=== PATIENT | male | born 1950 | race Caucasian/White ===

== ENCOUNTER 2018-08-06 19:09 | Outpatient (REF) | payer MEDICARE, SELFPAY ==
[2018-08-06 20:22] LABS: Anion Gap 8.7 mmol/L (3-11); BUN 23 mg/dL (7-18); CO2 28.3 mmol/L (21.0-32.0); CREATININE 1.41 mg/dL (0.70-1.30); Calcium 8.7 mg/dL (8.5-10.1); Chloride 102 mmol/L (98-107); Cholesterol 220 mg/dL (50-200); Estimated GFR 50.14 (mL/min/1.73m2); Glucose 104 mg/dL (70-100); HDL Cholesterol 36 mg/dL (40-60); LDL CHOLESTEROL 148 mg/dL (<100); Potassium 4.7 mmol/L (3.5-5.1); Sodium 139 mmol/L (136-145); Triglyceride 182 mg/dL (30-150)
== END 2018-08-06 19:29 ==
LOC: NCHCN 19:09
PROVIDERS: Visit Provider Physician Assistant Medical
DX: Z13.6 Encounter for screening for cardiovascular disorders (principal); R69 Illness, unspecified
CPT/HCPCS: 80048; 80061; 83721

== ENCOUNTER 2018-09-01 09:34 | Outpatient (REF) | payer MEDICARE, SELFPAY ==
[2018-09-01 19:57] LABS: Anion Gap 8.5 mmol/L (3-11); BUN 28 mg/dL (7-18); CO2 27.5 mmol/L (21.0-32.0); CREATININE 1.33 mg/dL (0.70-1.30); Calcium 9.3 mg/dL (8.5-10.1); Chloride 102 mmol/L (98-107); Estimated GFR 53.63 (mL/min/1.73m2); Glucose 102 mg/dL (70-100); Potassium 4.6 mmol/L (3.5-5.1); Sodium 138 mmol/L (136-145)
== END 2018-09-01 09:54 ==
LOC: NCHCN 09:34
PROVIDERS: PCP Physician Assistant Medical; Visit Provider Physician Assistant Medical
DX: N18.3 Chronic kidney disease, stage 3 (moderate) (principal)
CPT/HCPCS: 80048

== ENCOUNTER 2021-02-05 18:14 | Outpatient (REF) | payer MEDICARE, SELFPAY ==
[2021-02-05 18:46] LABS: Iron 66 ug/dL (65-175); Total Iron Binding Capacity 306 ug/dL (250-450); Transferrin Sat 22 % (20-55)
[2021-02-05 19:08] LABS: ALT 37 U/L (16-63); AST 24 U/L (15-37); Albumin 3.9 g/dL (3.4-5.0); Alkaline Phosphatase 95 U/L (46-116); Anion Gap 8.6 mmol/L (3-11); BUN 22 mg/dL (7-18); Bilirubin, Total 0.4 mg/dL (0.2-1.0); CO2 26.4 mmol/L (21.0-32.0); CREATININE 1.4 mg/dL (0.70-1.30); Calcium 8.9 mg/dL (8.5-10.1); Chloride 104 mmol/L (98-107); Estimated GFR 50.25 (mL/min/1.73m2); Ferritin 216 ng/mL (26-388); Glucose 91 mg/dL (74-106); Potassium 4.3 mmol/L (3.5-5.1); Sodium 139 mmol/L (136-145); TSH (W/Ref FT4) 1.66 uIU/mL (0.36-3.74); Vitamin B12 330 pg/mL (193-986)
== END 2021-02-05 18:15 | disposition home or self-care (01) ==
LOC: NCHCN 18:14
PROVIDERS: PCP Physician Assistant Medical; Visit Provider Physician Assistant
DX: R25.2 Cramp and spasm (principal); N18.9 Chronic kidney disease, unspecified; K21.9 Gastro-esophageal reflux disease without esophagitis; I87.2 Venous insufficiency (chronic) (peripheral)
CPT/HCPCS: 80053; 82607; 82728; 83540; 83550; 83735; 84443

== ENCOUNTER 2021-04-22 18:24 | Outpatient (REF) | payer MEDICARE, SELFPAY ==
[2021-04-22 18:55] LABS: ESR 23 mm/hr (0-20)
[2021-04-22 19:33] LABS: Creatine Kinase 154 U/L (39-308)
[2021-04-24 16:11] LABS: ANA Interpretation Positive (Negative); ANA Titer Pattern 1:80 Speckled
== END 2021-04-22 18:25 | disposition home or self-care (01) ==
LOC: NCHCN 18:24
PROVIDERS: PCP Physician Assistant Medical; Visit Provider Physician Assistant
DX: N18.30 Chronic kidney disease, stage 3 unspecified (principal); M79.10 Myalgia, unspecified site
CPT/HCPCS: 82550; 85652; 86038

== ENCOUNTER 2021-05-26 13:48 | Outpatient (CLI) | payer MEDICARE, SELFPAY ==
[2021-06-07 16:51] LABS: ALT 97 U/L (16-63); AST 65 U/L (15-37); Albumin 3.1 g/dL (3.4-5.0); Alkaline Phosphatase 212 U/L (46-116); Anion Gap 7.8 mmol/L (3-11); BUN 19 mg/dL (7-18); Bilirubin, Total 0.3 mg/dL (0.2-1.0); CO2 26.2 mmol/L (21.0-32.0); CREATININE 1.3 mg/dL (0.70-1.30); Calcium 8.5 mg/dL (8.5-10.1); Chloride 104 mmol/L (98-107); Estimated GFR 54.57 (mL/min/1.73m2); Glucose 103 mg/dL (74-106); Potassium 3.8 mmol/L (3.5-5.1); Sodium 138 mmol/L (136-145)
[2021-06-07 16:58] LABS: Abs Immature Grans 0.03 10^3/uL (0.0-0.06); Absolute Basophil Count 0.04 10^3/uL (0.0-0.2); Absolute Eosinophil Count 0.16 10^3/uL (0.0-0.7); Absolute Lymphocyte Count 0.62 10^3/uL (1.2-3.4); Absolute Monocyte Count 0.98 10^3/uL (0.1-0.8); Basophils % 0.5; Eosinophils % 1.8; HCT 32.7 % (40.0-50.0); HGB 10.2 g/dL (13.5-17.5); Immature Grans % 0.3; Lymphocytes % 7.1; MCH 28.1 pg (27.0-33.0); MCHC 31.2 % (32.0-36.0); MCV 90.1 fL (80-95); MPV 9.6 fL (8.0-11.0); Monocytes % 11.2; Neutrophils % 79.1; Nucleated RBC 0 %; Platelet Count 313 10^3/uL (130-400); RBC 3.63 10^6/uL (4.36-5.78); RDW 13.2 % (11.8-14.1); RDW-SD 43.4 fL; WBC 8.73 10^3/uL (4.4-10.8)
== END 2021-05-26 13:49 | disposition home or self-care (01) ==
LOC: LBO 06-10 13:54
PROVIDERS: PCP Physician Assistant Medical; Visit Provider Internal Medicine Hematology & Oncology
DX: C7A.8 Other malignant neuroendocrine tumors (principal)
CPT/HCPCS: 36415; 80053; 85025

== ENCOUNTER 2021-06-28 03:39 | Outpatient (CLI) | payer MEDICARE, SELFPAY ==
[2021-06-28 13:09] LABS: Abs Immature Grans 0.02 10^3/uL (0.0-0.06); HCT 30.8 % (40.0-50.0); HGB 9.7 g/dL (13.5-17.5); MCH 27.6 pg (27.0-33.0); MCHC 31.5 % (32.0-36.0); MCV 87.5 fL (80-95); MPV 9.5 fL (8.0-11.0); Nucleated RBC 0 %; RBC 3.52 10^6/uL (4.36-5.78); RDW 13.6 % (11.8-14.1); RDW-SD 42.9 fL
[2021-06-28 13:19] LABS: ALT 35 U/L (16-63); AST 19 U/L (15-37); Alkaline Phosphatase 148 U/L (46-116); Anion Gap 7.4 mmol/L (3-11); BUN 14 mg/dL (7-18); Bilirubin, Total 0.2 mg/dL (0.2-1.0); CO2 27.6 mmol/L (21.0-32.0); CREATININE 1.2 mg/dL (0.70-1.30); Calcium 8.6 mg/dL (8.5-10.1); Chloride 104 mmol/L (98-107); Estimated GFR 59.86 (mL/min/1.73m2); Glucose 122 mg/dL (74-106); Sodium 139 mmol/L (136-145)
[2021-06-28 13:36] LABS: Atypical Lymphocytes % 2; Bands % 1
[2021-06-28 13:37] LABS: Absolute Basophil Count 0.04 10^3/uL (0.0-0.2); Absolute Monocyte Count 0.44 10^3/uL (0.1-0.8); Diff Comment Manual Differential; Poikilocytes 1+; Polychromasia Present
[2021-06-28 13:38] LABS: Platelet Count 249 10^3/uL (130-400)
[2021-06-28 13:43] LABS: WBC 1.36 10^3/uL (4.4-10.8)
[2021-06-28 13:44] LABS: Absolute Neutrophil Count 0.29 10^3/uL (1.2-6.7)
== END 2021-06-28 03:40 | disposition home or self-care (01) ==
LOC: LBO 03:39
PROVIDERS: PCP Physician Assistant Medical; Visit Provider Internal Medicine Hematology & Oncology
DX: C7A.8 Other malignant neuroendocrine tumors (principal)
CPT/HCPCS: 36415; 80053; 85025

== ENCOUNTER 2021-07-02 04:49 | Outpatient (CLI) | payer MEDICARE, SELFPAY ==
[2021-07-02 07:50] LABS: ALT 28 U/L (16-63); AST 22 U/L (15-37); Albumin 3.1 g/dL (3.4-5.0); Alkaline Phosphatase 155 U/L (46-116); Anion Gap 7.7 mmol/L (3-11); BUN 16 mg/dL (7-18); Bilirubin, Total 0.1 mg/dL (0.2-1.0); CO2 28.3 mmol/L (21.0-32.0); CREATININE 1.3 mg/dL (0.70-1.30); Calcium 9.1 mg/dL (8.5-10.1); Chloride 104 mmol/L (98-107); Estimated GFR 54.57 (mL/min/1.73m2); Glucose 103 mg/dL (74-106); Potassium 4.2 mmol/L (3.5-5.1); Sodium 140 mmol/L (136-145); Total Protein 8.1 g/dL (6.4-8.2)
[2021-07-02 07:51] LABS: Abs Immature Grans 0.18 10^3/uL (0.0-0.06); Absolute Basophil Count 0.05 10^3/uL (0.0-0.2); Absolute Eosinophil Count 0.12 10^3/uL (0.0-0.7); Absolute Lymphocyte Count 0.73 10^3/uL (1.2-3.4); Absolute Monocyte Count 0.97 10^3/uL (0.1-0.8); Basophils % 1.2; Eosinophils % 2.8; HCT 32.9 % (40.0-50.0); HGB 10.1 g/dL (13.5-17.5); Immature Grans % 4.2; Lymphocytes % 17.2; MCH 27.4 pg (27.0-33.0); MCHC 30.7 % (32.0-36.0); MCV 89.2 fL (80-95); MPV 9.6 fL (8.0-11.0); Monocytes % 22.8; Neutrophils % 51.8; Nucleated RBC 0 %; Platelet Count 247 10^3/uL (130-400); RBC 3.69 10^6/uL (4.36-5.78); RDW 13.8 % (11.8-14.1); RDW-SD 44.5 fL; WBC 4.25 10^3/uL (4.4-10.8)
== END 2021-07-02 04:50 | disposition home or self-care (01) ==
LOC: LBO 04:49
PROVIDERS: PCP Physician Assistant Medical; Visit Provider Internal Medicine Hematology & Oncology
DX: C7A.8 Other malignant neuroendocrine tumors (principal)
CPT/HCPCS: 36415; 80053; 85025

== ENCOUNTER 2021-07-23 07:19 | Outpatient (CLI) | payer MEDICARE, SELFPAY ==
[2021-07-23 07:37] LABS: Abs Immature Grans 0.13 10^3/uL (0.0-0.06); Absolute Basophil Count 0.04 10^3/uL (0.0-0.2); Absolute Eosinophil Count 0.13 10^3/uL (0.0-0.7); Absolute Lymphocyte Count 0.81 10^3/uL (1.2-3.4); Absolute Monocyte Count 1.12 10^3/uL (0.1-0.8); Absolute Neutrophil Count 6.15 10^3/uL (1.2-6.7); Basophils % 0.5; Eosinophils % 1.6; HCT 32.1 % (40.0-50.0); HGB 9.8 g/dL (13.5-17.5); Immature Grans % 1.6; Lymphocytes % 9.7; MCH 27.5 pg (27.0-33.0); MCHC 30.5 % (32.0-36.0); MCV 89.9 fL (80-95); MPV 10.5 fL (8.0-11.0); Monocytes % 13.4; Neutrophils % 73.2; Nucleated RBC 0 %; Platelet Count 207 10^3/uL (130-400); RBC 3.57 10^6/uL (4.36-5.78); RDW 17.1 % (11.8-14.1); RDW-SD 53.9 fL; WBC 8.38 10^3/uL (4.4-10.8)
[2021-07-23 07:51] LABS: ALT 27 U/L (16-63); AST 21 U/L (15-37); Albumin 3.2 g/dL (3.4-5.0); Alkaline Phosphatase 147 U/L (46-116); Anion Gap 6.4 mmol/L (3-11); BUN 12 mg/dL (7-18); Bilirubin, Total 0.2 mg/dL (0.2-1.0); CO2 27.6 mmol/L (21.0-32.0); CREATININE 1.2 mg/dL (0.70-1.30); Calcium 8.6 mg/dL (8.5-10.1); Chloride 107 mmol/L (98-107); Estimated GFR 59.86 (mL/min/1.73m2); Glucose 100 mg/dL (74-106); Sodium 141 mmol/L (136-145); Total Protein 7.8 g/dL (6.4-8.2)
== END 2021-07-23 07:20 | disposition home or self-care (01) ==
LOC: LBO 07:22
PROVIDERS: PCP Physician Assistant Medical; Visit Provider Internal Medicine Hematology & Oncology
DX: C7A.8 Other malignant neuroendocrine tumors (principal)
CPT/HCPCS: 36415; 80053; 85025

== ENCOUNTER 2021-08-13 02:18 | Outpatient (RCR) | payer MEDICARE, SELFPAY ==
[2021-08-13 07:48] LABS: Abs Immature Grans 0.04 10^3/uL (0.0-0.06); Absolute Basophil Count 0.03 10^3/uL (0.0-0.2); Absolute Lymphocyte Count 0.64 10^3/uL (1.2-3.4); Absolute Monocyte Count 0.93 10^3/uL (0.1-0.8); Absolute Neutrophil Count 3.93 10^3/uL (1.2-6.7); Basophils % 0.5; Eosinophils % 1.8; HCT 33.7 % (40.0-50.0); HGB 10.4 g/dL (13.5-17.5); Immature Grans % 0.7; Lymphocytes % 11.3; MCHC 30.9 % (32.0-36.0); MCV 90.8 fL (80-95); MPV 9.7 fL (8.0-11.0); Monocytes % 16.4; Neutrophils % 69.3; Nucleated RBC 0 %; Platelet Count 199 10^3/uL (130-400); RBC 3.71 10^6/uL (4.36-5.78); RDW 18.7 % (11.8-14.1); RDW-SD 61.7 fL; WBC 5.67 10^3/uL (4.4-10.8)
[2021-08-13] MEDS: Normal Saline Flush 10 ML SYR IVP (07:54)
[2021-08-13 08:03] LABS: ALT 27 U/L (16-63); AST 15 U/L (15-37); Albumin 3.5 g/dL (3.4-5.0); Alkaline Phosphatase 139 U/L (46-116); Anion Gap 8.8 mmol/L (3-11); BUN 15 mg/dL (7-18); Bilirubin, Total 0.2 mg/dL (0.2-1.0); CO2 27.2 mmol/L (21.0-32.0); CREATININE 1.3 mg/dL (0.70-1.30); Calcium 8.9 mg/dL (8.5-10.1); Chloride 105 mmol/L (98-107); Estimated GFR 54.57 (mL/min/1.73m2); Glucose 93 mg/dL (74-106); Sodium 141 mmol/L (136-145); Total Protein 7.9 g/dL (6.4-8.2)
== END 2021-08-25 23:59 | disposition home or self-care (01) ==
LOC: INF 02:18
PROVIDERS: Internal Medicine Hematology & Oncology; PCP Physician Assistant Medical; Visit Provider Internal Medicine
DX: C7A.8 Other malignant neuroendocrine tumors (principal); Z45.2 Encounter for adjustment and management of vascular access device
CPT/HCPCS: 36591; 80053; 85025

== ENCOUNTER 2021-09-03 07:31 | Outpatient (RCR) | payer MEDICARE, SELFPAY ==
--- OUTSIDE RECORDS SUMMARY | 2021-09-03 07:38 | XMS_ITS | Encounter Summary ---
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 I have reassured the patient that we can absolutely accommodate him here at his local hospital and get this done for him so he can continue therapy with what little time he has left. We had a long and detailed discussion ab out the low likelihood but possible risks of Mediport placement as well as the indications and potential benefits of having the port. We talked about long? term risks including wound infection and foreign body reaction after the port has been placed. Overall he is in agreement with all of t his and wishes to proceed. Plan: Mediport placement in the next cou ple of days before his appointment on Thursday. 15 minutes spent on this follow-up visit 1. Pre-surgery testing ? unlisted lab - EKG done by lab Discussion Note: None recorded.Patient educational handouts: No information available. Plan of Care Reminders Provider Appointments None ? ? recorded. Lab Unlisted Lab [facility] 07/16/2021 Hospital Lab (Internal) Referral None ? ? recorded. Procedures None ? ? recorded. Surgeries None ? ? recorded. Imaging None ? ? recorded. Medications Name Start Date ? ? Pepcid 20 mg tablet ? Take 1 tablet every day by oral route. Medications Administered None recorded. Vitals Height Weight BMI Blood Pressure 5 ft 7 in 201 lbs 31.5 kg/m2 120/80 mm[Hg] Results Lab Results None recorded. Allergies Code Code System Name Reaction Severity Onset NKDA ? ? ? Problems Name Status Onset Date Source ? Stasis Dermatitis Active 11/11/2018 ? Venous Insufficiency of Leg Active 11/11/2018 ? Gastroesophageal Reflux Disease Active 11/11/2018 ? Chronic Kidney Disease Stage 3 Active 11/11/2018 ? Pain of Left Hip Joint Active 11/11/2018 ? Malignant Tumor of Esophagus Active 07/17/2021 ? Lesion of Liver Active ? ? Procedures Date Name Performed by ? 07/17/2021 Insertion of Non-tunneled Centrally Info rmation not available Inserted Central Venous Catheter, > 5 Yrs (Surg) 05/09/2021 Endoscopy Information not avai lable Notes: GE junction cancer 11/26/2019 Back Surgery Information not avai lable 08/26/2019 Hip Surgery Information not avai lable Vaccine List None recorded. Social History Tobacco Smoking Status Never Smoker What is your level of alcohol None consumption? Have you used IV drugs? N Do you or have you ever used Never used smokeless tobacco smokeless tobacco? What is your code status? 0 Do you or have you ever used Never used electronic e-cigarettes or vape? cigarettes Do you have an advanced Y Notes: [facility] directive? Do you feel safe at home? Y Do you or have you ever used N any other forms of tobacco or nicotine? Is blood transfusion acceptable Y in an emergency? Do you use any illicit or N recreational drugs? What is your occupation? [employer] Have you fallen in the last 3 N months? Functional Status Unknown. Past Encounters 07/16/2021 Pre-surgery Testing Franklin Pickering MD: [address] [place] [address] [place] [address], Ph. 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 for his advanced disease. He was offered palliative chemotherapy in hopes of survival benefit and has had 2 doses, 1 in each arm with good results and very little side effects.
</div><div>< br></div><div>Since he has had a good response, his oncologist has given him the option of continuing palliative chemotherapy but in doing so, a Mediport is necessary for further infusion s.
</div><div>
</div><div>His oncologist has requested this be placed urgently since plans are to see him in the next couple of days to continue the therapy. Because of the time–sensitive nature, he was given the option to have this done at [facility] but he is hopeful that he can have it done here close to home if we are able to accommodate him in the next couple of days.
</div><div>
</div><div>He is not on any blood thinners. He does not have a family history of bleeding problems or clotting disorders.
</div><div>
</div> Review of Systems: ROS as noted in the HPI Review of Systems None recorded. Physical Exam ? Notes: General: Nontoxic and comfor table

Neuro: Alert and oriented x3

Psych: Appropriate mood and affect, good insight and understanding into condition<div>
</ div><div>
</div>
--- OUTSIDE RECORDS SUMMARY | 2021-09-03 07:38 | XMS_ITS ---
:1950 Author Care Team Providers Name Role Phone FRANKLIN KEY General Surgeon [phone] CALLY JOHNSON MD Primary Care Provider [phone] Allergies Code Code System Name Reaction Severity Status Onset NKDA ? Medications Name Status Start Date Stop Date ? ? fluocinonide 0.05 % topical cream Completed ? 05/02/2021 APPLY TO THE AFFECTED AREA(S) BY TOPICAL ROUTE 2 TIMES PER DAY Pepcid 20 mg tablet Active ? Not availabl e Take 1 tablet every day by oral route. Prilosec OTC 20 mg tablet,delayed release Completed ? 05/02/2021 Take 1 tablet every day by oral route. Problems Name Status Onset Date Source ? [...] 08/26/2019 Hip Surgery Information not avai lable 05/02/2021 NM, Bone Scan, Whole Body [facility] (Internal) [address] [place] [address] (Work Place) 05/02/2021 US, Guidance [facility] Radiology (Internal) [address] [place] [address] (Work Place) Results Lab Results Date Name Specimen Result Interpretation Description Value Range Status Address ? 05/09/2021 Pathology TISS ? Report (see ? Corrected North Study below) [facility] [address] 2021 Pathology TISS ? Report (see ? Final No rth Study below) [facility] L [facility] (Internal) : [address] 05/07/2021 Prothrombin BLD ? Pt 11.5 S 9.1-1 Final N orth Time 1.7 S [facility] Hospital L ab (Internal) : [address] ? ? BLD ? Inr 1.1 ? Final [facility] L [facility] (Internal) : [address] 05/07/2021 Partial BLD ? PTT (Ip) 24 s 22-35 Final No rth Thromboplastin s [facility] un[facility] Time Hospital L ab (Internal) : [address] 06/24/2017 Venipuncture BLD ? Venpn* ? ? Final [facility] L [facility] (Internal) : [address] brian 06/24/2017 CBC W/ Auto BLD ? Wbc 7.1 5.0-1 Final N orth Diff 10*3/uL 0.0 [facility] 10*3/ Hospital L ab uL (Internal) : [address] ? ? BLD Low Rbc 4.46 4.60- Final [facility] 10*6/uL 6.00 [facility] 10*6/ Hospital L ab uL (Internal) : [address] ? ? BLD ? Hgb 14.0 g/dL 14.0- Final [facility] 18.0 [facility] g/dL Hospital L ab (Internal) : [address] ? ? BLD ? Hct 41.7 % 41.0- Final [facility] 51.0 [facility] % Hospital L ab (Internal) : [address] ? ? BLD ? Mcv 93.5 fL 80.0- Final [facility] 96.0 [facility] fL Hospital L ab (Internal) : [address] ? ? BLD ? Mch 31.4 pg 26.0- Final [facility] 32.0 [facility] pg Hospital L ab (Internal) : [address] ? ? BLD ? Mchc 33.6 g/dL 31.0- Final [facility] 35.0 [facility] g/dL Hospital L ab (Internal) : [address] ? ? BLD ? Rdw 13.2 % 11.5- Final North 14.5 [facility] % Hospital L ab (Internal) : [address] ? ? BLD ? Plt 150 130-4 Final North 10*3/uL 50 [facility] 10*3/ Hospital L ab uL (Internal) : [address], [place] ? ? BLD ? Anc 5.50 ? Final [facility] 10*3/uL [facility] ([facility] : [address] ? ? BLD High Neutro 77.1 % 40.0- Final North 75.0 [facility] % Hospital L ab (Internal) : [address] ? ? BLD Low Lymph 11.3 % 20.0- Final North 50.0 [facility] % Hospital L ab (Internal) : [address] ? ? BLD ? Dickinson 9.5 % 2.0-1 Final North 0.0 % [facility] : [address] ? ? BLD ? Eos 1.7 % 1.0-6 Final North .0 % [facility] : [address] ? ? BLD ? Baso 0.3 % 0.0-1 Final North .0 % [facility] : [address] ? ? BLD ? Ig 0.1 % 0.0-0 Final North .9 % [facility] : [address] t 06/24/2017 BMP, Serum or PLASMA ? g/r 93 mg/dL 74-10 Court l North Plasma 6 [facility] mg/dL Hospital L ab (Internal) : [address] ? ? PLASMA ? Bun 16 mg/dL 9-20 Final [facility] mg/dL [facility] : [address] ? ? PLASMA ? Crea 1.00 0.66- Final North mg/dL 1.25 [facility] mg/dL Hospital L ab (Internal) : [address] ? ? PLASMA ? Ca 8.7 mg/dL 8.4-1 Final North 0.2 [facility] mg/dL Hospital L ab (Internal) : [address] ? ? PLASMA ? Na 138 137-1 Final [facility] mmol/L 45 [facility] mmol/ Hospital L ab L (Internal) : [address] ? ? PLASMA ? K 4.0 3.5-5 Final [facility] mmol/L .1 [facility] mmol/ Hospital L ab L (Internal) : [address] ? ? PLASMA ? Cl 107 98-10 Final [facility] mmol/L 7 [facility] mmol/ Hospital L ab L (Internal) : [address] ? ? PLASMA ? Tco2 23.0 22.0- Final [facility] mmol/L 30.0 [facility] mmol/ Hospital L ab L (Internal) : [address] 06/23/2017 Venipuncture BLD ? Venpn* ? ? Final [facility] Hospital L ab (Internal) : [address] 06/23/2017 Urinalysis, UR ? UA-color yellow pale Final [facility] Reflex Micro w Hosp ital Lab (Internal) : [address] t ? ? UR ? UA-appear clear clear Final [facility] Hospital L ab (Internal) : [address] t ? ? UR ? UA-spec 1.015 1.003 Final [facility] Grav -1.03 [facility] 5 Hospital L ab (Internal) : [address] t ? ? UR ? UA-pH 7.0 [pH] 4.6-8 Final [facility] .0 [facility] [pH] Hospital L ab (Internal) : [address] t ? ? UR ? UA-leuk negative negat Final [facility] Hospital L ab (Internal) : [address] t ? ? UR ? UA-nitrite negative negat Final [facility] Hospital L ab (Internal) : [address] t ? ? UR ? UA-prot negative negat Final [facility] Hospital L ab (Internal) : [address] t ? ? UR ? UA-gluc negative negat Final [facility] Hospital L ab (Internal) : [address] t ? ? UR ? UA-ketone negative negat Final [facility] Hospital L ab (Internal) : [address] t ? ? UR ? UA-urobil normal sandy Final [facility] L ab (Internal) : [address] ? ? UR ? UA-bili negative negat Final [facility] L ab (Internal) : [address] ? ? UR ? UA-blood negative negat Final [facility] L ab (Internal) : [address] 06/23/2017 Neutrophil BLD ? Anc-manual 8.05 ? Court l [facility] Count, 10*3/uL [facility] Absolute Hospital Lab (Anc), Blood (Int ernal): [address] 06/23/2017 Differential, BLD High Polys 88 % 40-75 Final [facility], Blood % Cou [facility] Hospital L ab (Internal) : [address] ? ? BLD ? Bands 0 % 0-5 % Final [facility] L ab (Internal) : [address] ? ? BLD Low Lymphs 7 % 20-50 Final [facility] L ab (Internal) : [address] ? ? BLD ? Dickinson 5 % 2-10 Final [facility] L ab (Internal) : [address] ? ? BLD ? Eos 0 % 0-6 % Final [facility] ab (Internal) : [address] ? ? BLD ? Baso 0 % 0-1 % Final [facility] L ab (Internal) : [address] ? ? BLD ? Atyp Lymph 0 % ? Final [facility] L ab (Internal) : [address] ? ? BLD ? Plts, Est. adequate adequ Final [facility] L ab (Internal) : [address] ? ? BLD ? RBC normal sandy Final [facility] Hospital L ab (Internal) : [address] 06/23/2017 Lipase, Serum S ? Lip 38 U/L 23-30 Final [facility] or Plasma 0 U/L [facility] L ab (Internal) : [address] 06/23/2017 CMP, Serum or S High g/r 114 mg/dL 74-10 Fin al North Plasma 6 [facility] mg/dL Hospital L ab (Internal) : [address] t ? ? S High Bun 22 mg/dL 9-20 Final North mg/dL [facility] (Internal) : [address] ? ? S ? Crea 1.10 0.66- Final North mg/dL 1.25 [facility] mg/dL Hospital L ab (Internal) : [address] ? ? S ? Ca 9.3 mg/dL 8.4-1 Final North 0.2 [facility] mg/dL Hospital L ab (Internal) : [address] t ? ? S ? Na 138 137-1 Final North mmol/L 45 [facility] mmol/ Hospital L ab L (Internal) : [address] t ? ? S ? K 4.4 3.5-5 Final North mmol/L .1 [facility] mmol/ Hospital L ab L (Internal) : [address] t ? ? S ? Cl 105 98-10 Final North mmol/L 7 [facility] mmol/ Hospital L ab L (Internal) : [address] ? ? S ? Tco2 22.0 22.0- Final North mmol/L 30.0 [facility] mmol/ Hospital L ab L (Internal) : [address] ? ? S ? Tp 8.2 g/dL 6.3-8 Final North .2 [facility] g/dL Hospital L ab (Internal) : [address] ? ? S ? Alb 4.3 g/dL 3.5-5 Final North .0 [facility] g/dL Hospital L ab (Internal) : [address] ? ? S ? Tbil 1.1 mg/dL 0.2-1 Final North .3 [facility] mg/dL Hospital L ab (Internal) : [address] t ? ? S ? Alp 76 U/L 38-12 Final North 6 U/L [facility] (Internal[facility] : [address] ? ? S ? Alt (Sgpt) 46 U/L 21-72 Final North U/L [facility] (Internal[facility] : [address] ? ? S ? Ast (Sgot) 27 U/L 17-59 Final [facility] U/L [facility] ([facility] : [address] 06/23/2017 CBC W/ Auto BLD ? Wbc 9.2 5.0-1 Final N orth Diff 10*3/uL 0.0 [facility] 10*3/ Hospital L ab uL (Internal) : [address] ? ? BLD ? Rbc 4.83 4.60- Final North 10*6/uL 6.00 [facility] 10*6/ Hospital L ab uL (Internal) : [address] ? ? BLD ? Hgb 15.3 g/dL 14.0- Final North 18.0 [facility] g/dL Hospital L ab (Internal) : [address] ? ? BLD ? Hct 44.8 % 41.0- Final North 51.0 Country % Hospital L ab (Internal) : [address] ? ? BLD ? Mcv 92.8 fL 80.0- Final North 96.0 [facility] fL Hospital L ab (Internal) : [address] ? ? BLD ? Mch 31.7 pg 26.0- Final North 32.0 Country pg Hospital L ab (Internal) : [address] ? ? BLD ? Mchc 34.2 g/dL 31.0- Final North 35.0 [facility] g/dL Hospital L ab (Internal) : [address] ? ? BLD ? Rdw 13.1 % 11.5- Final North 14.5 Country % Hospital L ab (Internal) : [address] ? ? BLD ? Plt 174 130-4 Final North 10*3/uL 50 [facility] 10*3/ Hospital L ab uL (Internal) : [address] Past Encounters 07/16/2021 Pre-surgery Testing Franklin Key MD: [address] [facility] [address] [place] [address], Ph. 05/01/2021 Lesion of Liver Franklin Key MD: [address] [facility] [address] [place] [address], Ph. Social History Tobacco Smoking Status Never Smoker Vaccine List None recorded. Plan of Care Reminders Provider Appointments None ? ? recorded. Lab None ? ? recorded. Referral None ? ? recorded. Procedures None ? ? recorded. Surgeries None ? ? recorded. Imaging None ? ? recorded. Vitals 07/16/2021 08:15AM Office 15 Height Weight BMI Blood Pressure 170.18 cm 91.17 kg 31.5 kg/m2 120/80 mm[Hg] 09/01/2018 Height Weight BMI Blood Pressure 171.7 cm 96.98 kg 32.9 kg/m2 122/82 mm[Hg]
[2021-09-03] MEDS: Normal Saline Flush 10 ML SYR IVP (07:45)
[2021-09-03 08:11] LABS: Absolute Eosinophil Count 0.09 10^3/uL (0.0-0.7); Absolute Monocyte Count 0.85 10^3/uL (0.1-0.8); Absolute Neutrophil Count 3.82 10^3/uL (1.2-6.7); Eosinophils % 1.7; HCT 32.7 % (40.0-50.0); HGB 10.3 g/dL (13.5-17.5); MCH 29.2 pg (27.0-33.0); MCHC 31.5 % (32.0-36.0); MCV 92.6 fL (80-95); Monocytes % 15.6; Neutrophils % 70.2; Platelet Count 188 10^3/uL (130-400); RBC 3.53 10^6/uL (4.36-5.78); RDW 19.4 % (11.8-14.1); RDW-SD 65.8 fL; WBC 5.44 10^3/uL (4.4-10.8)
[2021-09-03 08:12] LABS: Absolute Basophil Count 0.02 10^3/uL (0.0-0.2); Basophils % 0.4; Immature Grans % 1.1
[2021-09-03 08:32] LABS: Albumin 3.5 g/dL (3.4-5.0); BUN 19 mg/dL (7-18); Bilirubin, Total 0.3 mg/dL (0.2-1.0); CREATININE 1.1 mg/dL (0.70-1.30); Calcium 8.5 mg/dL (8.5-10.1); Glucose 100 mg/dL (74-106); Total Protein 7.5 g/dL (6.4-8.2)
[2021-09-03 08:33] LABS: ALT 32 U/L (16-63); AST 21 U/L (15-37); Alkaline Phosphatase 133 U/L (46-116); Anion Gap 8.3 mmol/L (3-11); CO2 26.7 mmol/L (21.0-32.0); Chloride 107 mmol/L (98-107); Sodium 142 mmol/L (136-145)
[2021-09-03 08:49] LABS: Abs Immature Grans 0.06 10^3/uL (0.0-0.06)
== END 2021-09-24 23:59 | disposition home or self-care (01) ==
LOC: INF 07:31
PROVIDERS: Internal Medicine Hematology & Oncology; PCP Physician Assistant Medical; Visit Provider Internal Medicine
DX: C7A.8 Other malignant neuroendocrine tumors (principal); Z45.2 Encounter for adjustment and management of vascular access device
CPT/HCPCS: 36591; 80053; 85025

== ENCOUNTER 2021-10-01 00:45 | Outpatient (RCR) | payer MEDICARE, SELFPAY ==
[2021-10-01 07:43] LABS: Abs Immature Grans 0.01 10^3/uL (0.0-0.06); Absolute Basophil Count 0.03 10^3/uL (0.0-0.2); Absolute Eosinophil Count 0.09 10^3/uL (0.0-0.7); Absolute Lymphocyte Count 0.56 10^3/uL (1.2-3.4); Absolute Monocyte Count 0.98 10^3/uL (0.1-0.8); Absolute Neutrophil Count 3.11 10^3/uL (1.2-6.7); Basophils % 0.6; Eosinophils % 1.9; HCT 36.6 % (40.0-50.0); HGB 11.6 g/dL (13.5-17.5); Immature Grans % 0.2; Lymphocytes % 11.7; MCH 30.4 pg (27.0-33.0); MCHC 31.7 % (32.0-36.0); MCV 95.8 fL (80-95); MPV 9.6 fL (8.0-11.0); Monocytes % 20.5; Neutrophils % 65.1; Nucleated RBC 0 %; Platelet Count 175 10^3/uL (130-400); RBC 3.82 10^6/uL (4.36-5.78); RDW 18.8 % (11.8-14.1); RDW-SD 66.8 fL; WBC 4.78 10^3/uL (4.4-10.8)
[2021-10-01 07:58] LABS: ALT 32 U/L (16-63); AST 21 U/L (15-37); Albumin 3.8 g/dL (3.4-5.0); Alkaline Phosphatase 109 U/L (46-116); Anion Gap 8.2 mmol/L (3-11); BUN 21 mg/dL (7-18); Bilirubin, Total 0.4 mg/dL (0.2-1.0); CO2 26.8 mmol/L (21.0-32.0); CREATININE 1.2 mg/dL (0.70-1.30); Calcium 8.8 mg/dL (8.5-10.1); Chloride 106 mmol/L (98-107); Estimated GFR 59.86 (mL/min/1.73m2); Glucose 109 mg/dL (74-106); Sodium 141 mmol/L (136-145); Total Protein 7.9 g/dL (6.4-8.2)
[2021-10-01] MEDS: Normal Saline Flush 10 ML SYR IVP (08:14)
== END 2021-10-25 23:59 | disposition home or self-care (01) ==
LOC: INF 00:45
PROVIDERS: Internal Medicine Hematology & Oncology; PCP Physician Assistant Medical; Visit Provider Internal Medicine
DX: C7A.8 Other malignant neuroendocrine tumors (principal); Z45.2 Encounter for adjustment and management of vascular access device
CPT/HCPCS: 36591; 80053; 85025

== ENCOUNTER 2021-11-12 01:25 | Outpatient (RCR) | payer MEDICARE, SELFPAY ==
[2021-11-12] MEDS: Normal Saline Flush 10 ML SYR IVP (08:11)
[2021-11-12 08:26] LABS: Abs Immature Grans 0.01 10^3/uL (0.0-0.06); Absolute Basophil Count 0.03 10^3/uL (0.0-0.2); Absolute Eosinophil Count 0.21 10^3/uL (0.0-0.7); Absolute Monocyte Count 0.85 10^3/uL (0.1-0.8); Absolute Neutrophil Count 2.91 10^3/uL (1.2-6.7); Basophils % 0.7; Eosinophils % 4.7; HCT 40.8 % (40.0-50.0); Immature Grans % 0.2; Lymphocytes % 11.1; MCH 30.7 pg (27.0-33.0); MCHC 31.9 % (32.0-36.0); MCV 96.2 fL (80-95); Monocytes % 18.8; Neutrophils % 64.5; Nucleated RBC 0 %; Platelet Count 152 10^3/uL (130-400); RBC 4.24 10^6/uL (4.36-5.78); RDW 13.9 % (11.8-14.1); RDW-SD 49.1 fL; WBC 4.51 10^3/uL (4.4-10.8)
[2021-11-12 08:40] LABS: ALT 30 U/L (16-63); AST 21 U/L (15-37); Albumin 3.8 g/dL (3.4-5.0); Alkaline Phosphatase 100 U/L (46-116); Anion Gap 9.1 mmol/L (3-11); BUN 21 mg/dL (7-18); Bilirubin, Total 0.4 mg/dL (0.2-1.0); CO2 24.9 mmol/L (21.0-32.0); CREATININE 1.3 mg/dL (0.70-1.30); Calcium 8.6 mg/dL (8.5-10.1); Chloride 103 mmol/L (98-107); Estimated GFR 54.57 (mL/min/1.73m2); Glucose 101 mg/dL (74-106); Potassium 4.1 mmol/L (3.5-5.1); Sodium 137 mmol/L (136-145)
== END 2021-11-25 23:59 | disposition home or self-care (01) ==
LOC: INF 01:25
PROVIDERS: Internal Medicine Hematology & Oncology; PCP Physician Assistant Medical; Visit Provider Internal Medicine
DX: C7A.8 Other malignant neuroendocrine tumors (principal); Z45.2 Encounter for adjustment and management of vascular access device
CPT/HCPCS: 36591; 80053; 85025

== ENCOUNTER 2021-12-03 01:44 | Outpatient (RCR) | payer MEDICARE, SELFPAY ==
[2021-12-03] MEDS: Normal Saline Flush 10 ML SYR IVP (08:03)
[2021-12-03 08:24] LABS: Abs Immature Grans 0.02 10^3/uL (0.0-0.06); Absolute Basophil Count 0.02 10^3/uL (0.0-0.2); Absolute Eosinophil Count 0.06 10^3/uL (0.0-0.7); Absolute Lymphocyte Count 0.59 10^3/uL (1.2-3.4); Absolute Monocyte Count 1.02 10^3/uL (0.1-0.8); Absolute Neutrophil Count 3.64 10^3/uL (1.2-6.7); Basophils % 0.4; Eosinophils % 1.1; HCT 39.3 % (40.0-50.0); HGB 12.8 g/dL (13.5-17.5); Immature Grans % 0.4; MCH 31.5 pg (27.0-33.0); MCHC 32.6 % (32.0-36.0); MCV 96.8 fL (80-95); MPV 9.8 fL (8.0-11.0); Monocytes % 19.1; Nucleated RBC 0 %; Platelet Count 152 10^3/uL (130-400); RBC 4.06 10^6/uL (4.36-5.78); RDW-SD 49.2 fL; WBC 5.35 10^3/uL (4.4-10.8)
[2021-12-03 08:46] LABS: ALT 32 U/L (16-63); AST 18 U/L (15-37); Albumin 3.6 g/dL (3.4-5.0); Alkaline Phosphatase 120 U/L (46-116); Anion Gap 8.6 mmol/L (3-11); BUN 17 mg/dL (7-18); Bilirubin, Total 0.3 mg/dL (0.2-1.0); CO2 27.4 mmol/L (21.0-32.0); CREATININE 1.4 mg/dL (0.70-1.30); Calcium 8.7 mg/dL (8.5-10.1); Chloride 104 mmol/L (98-107); Glucose 98 mg/dL (74-106); Sodium 140 mmol/L (136-145); Total Protein 7.7 g/dL (6.4-8.2)
== END 2021-12-23 23:59 | disposition home or self-care (01) ==
LOC: INF 01:44
PROVIDERS: PCP Physician Assistant Medical; Visit Provider Internal Medicine
DX: C7A.8 Other malignant neuroendocrine tumors (principal); Z45.2 Encounter for adjustment and management of vascular access device
CPT/HCPCS: 36591; 80053; 85025

== ENCOUNTER 2022-03-14 01:49 | Outpatient (RCR) | payer MEDICARE, SELFPAY ==
[2022-02-26 09:56] LABS: Absolute Basophil Count 0.02 10^3/uL (0.0-0.2); Absolute Eosinophil Count 0.07 10^3/uL (0.0-0.7); Absolute Lymphocyte Count 0.52 10^3/uL (1.2-3.4); Absolute Monocyte Count 0.71 10^3/uL (0.1-0.8); Absolute Neutrophil Count 1.95 10^3/uL (1.2-6.7); Basophils % 0.6; Eosinophils % 2.1; HCT 42.6 % (40.0-50.0); HGB 14.2 g/dL (13.5-17.5); Lymphocytes % 15.9; MCH 31.5 pg (27.0-33.0); MCHC 33.3 % (32.0-36.0); MCV 95 fL (80-95); MPV 9.9 fL (8.0-11.0); Monocytes % 21.7; Neutrophils % 59.7; Platelet Count 154 10^3/uL (130-400); RBC 4.51 10^6/uL (4.36-5.78); RDW 12.9 % (11.8-14.1); RDW-SD 44.5 fL; WBC 3.27 10^3/uL (4.4-10.8)
[2022-02-26 10:08] LABS: ALT 32 U/L (16-63); AST 22 U/L (15-37); Albumin 3.8 g/dL (3.4-5.0); Alkaline Phosphatase 95 U/L (46-116); Anion Gap 8.2 mmol/L (3-11); BUN 14 mg/dL (7-18); Bilirubin, Total 0.4 mg/dL (0.2-1.0); CO2 26.8 mmol/L (21.0-32.0); CREATININE 1.4 mg/dL (0.70-1.30); Calcium 8.7 mg/dL (8.5-10.1); Chloride 104 mmol/L (98-107); Glucose 103 mg/dL (74-106); Potassium 4.1 mmol/L (3.5-5.1); Sodium 139 mmol/L (136-145)
[2022-02-26] MEDS: Normal Saline Flush 10 ML SYR IVP (10:23)
[2022-03-14] MEDS: Normal Saline Flush 10 ML SYR IVP (10:06)
[2022-03-14 10:20] LABS: Absolute Basophil Count 0.02 10^3/uL (0.0-0.2); Absolute Eosinophil Count 0.18 10^3/uL (0.0-0.7); Absolute Lymphocyte Count 0.41 10^3/uL (1.2-3.4); Absolute Monocyte Count 0.55 10^3/uL (0.1-0.8); Absolute Neutrophil Count 1.25 10^3/uL (1.2-6.7); Basophils % 0.8; Eosinophils % 7.5; HCT 40.1 % (40.0-50.0); HGB 13.4 g/dL (13.5-17.5); MCH 31.8 pg (27.0-33.0); MCHC 33.4 % (32.0-36.0); MCV 95 fL (80-95); MPV 10.2 fL (8.0-11.0); Monocytes % 22.8; Neutrophils % 51.9; Platelet Count 150 10^3/uL (130-400); RBC 4.21 10^6/uL (4.36-5.78); RDW 12.6 % (11.8-14.1); RDW-SD 44.1 fL; WBC 2.41 10^3/uL (4.4-10.8)
[2022-03-14 10:33] LABS: ALT 36 U/L (16-63); AST 22 U/L (15-37); Albumin 3.7 g/dL (3.4-5.0); Alkaline Phosphatase 104 U/L (46-116); Anion Gap 8.3 mmol/L (3-11); BUN 14 mg/dL (7-18); Bilirubin, Total 0.4 mg/dL (0.2-1.0); CO2 24.7 mmol/L (21.0-32.0); CREATININE 1.3 mg/dL (0.70-1.30); Calcium 8.8 mg/dL (8.5-10.1); Chloride 104 mmol/L (98-107); Estimated GFR 54.57 (mL/min/1.73m2); Glucose 105 mg/dL (74-106); Sodium 137 mmol/L (136-145); Total Protein 7.9 g/dL (6.4-8.2)
== END 2022-03-25 23:59 | disposition home or self-care (01) ==
LOC: INF 01:49
PROVIDERS: PCP Physician Assistant Medical; Visit Provider Internal Medicine Hematology & Oncology
DX: C7A.8 Other malignant neuroendocrine tumors (principal); Z45.2 Encounter for adjustment and management of vascular access device
CPT/HCPCS: 36591; 80053; 85025

== ENCOUNTER 2022-04-11 00:58 | Outpatient (RCR) | payer MEDICARE, SELFPAY ==
[2022-03-28 08:41] LABS: Abs Immature Grans 0.01 10^3/uL (0.0-0.06); Absolute Basophil Count 0.02 10^3/uL (0.0-0.2); Absolute Eosinophil Count 0.13 10^3/uL (0.0-0.7); Absolute Lymphocyte Count 0.44 10^3/uL (1.2-3.4); Absolute Monocyte Count 0.53 10^3/uL (0.1-0.8); Absolute Neutrophil Count 1.52 10^3/uL (1.2-6.7); Basophils % 0.8; Eosinophils % 4.9; HCT 39.4 % (40.0-50.0); HGB 13.1 g/dL (13.5-17.5); Immature Grans % 0.4; Lymphocytes % 16.6; MCH 31.6 pg (27.0-33.0); MCHC 33.2 % (32.0-36.0); MCV 95 fL (80-95); MPV 9.9 fL (8.0-11.0); Neutrophils % 57.3; Platelet Count 129 10^3/uL (130-400); RBC 4.14 10^6/uL (4.36-5.78); RDW 12.9 % (11.8-14.1); RDW-SD 44.2 fL; WBC 2.65 10^3/uL (4.4-10.8)
[2022-03-28 08:57] LABS: ALT 37 U/L (16-63); AST 25 U/L (15-37); Albumin 3.6 g/dL (3.4-5.0); Alkaline Phosphatase 97 U/L (46-116); BUN 20 mg/dL (7-18); Bilirubin, Total 0.4 mg/dL (0.2-1.0); CREATININE 1.3 mg/dL (0.70-1.30); Calcium 8.7 mg/dL (8.5-10.1); Chloride 105 mmol/L (98-107); Estimated GFR 54.57 (mL/min/1.73m2); Glucose 98 mg/dL (74-106); Potassium 3.9 mmol/L (3.5-5.1); Sodium 138 mmol/L (136-145); Total Protein 7.7 g/dL (6.4-8.2)
[2022-03-28] MEDS: Normal Saline Flush 10 ML SYR IVP (08:58)
[2022-04-11] MEDS: Normal Saline Flush 10 ML SYR IVP (09:08)
[2022-04-11 09:25] LABS: Abs Immature Grans 0.01 10^3/uL (0.0-0.06); Absolute Basophil Count 0.01 10^3/uL (0.0-0.2); Absolute Eosinophil Count 0.16 10^3/uL (0.0-0.7); Absolute Lymphocyte Count 0.58 10^3/uL (1.2-3.4); Absolute Monocyte Count 0.67 10^3/uL (0.1-0.8); Absolute Neutrophil Count 2.08 10^3/uL (1.2-6.7); Basophils % 0.3; Eosinophils % 4.6; HCT 39.8 % (40.0-50.0); HGB 13.9 g/dL (13.5-17.5); Immature Grans % 0.3; Lymphocytes % 16.5; MCH 32.6 pg (27.0-33.0); MCHC 34.9 % (32.0-36.0); MCV 93 fL (80-95); MPV 10.3 fL (8.0-11.0); Monocytes % 19.1; Neutrophils % 59.2; Platelet Count 141 10^3/uL (130-400); RBC 4.26 10^6/uL (4.36-5.78); RDW 13.5 % (11.8-14.1); RDW-SD 45.4 fL; WBC 3.51 10^3/uL (4.4-10.8)
[2022-04-11 09:36] LABS: ALT 38 U/L (16-63); AST 21 U/L (15-37); Albumin 3.8 g/dL (3.4-5.0); Alkaline Phosphatase 103 U/L (46-116); Anion Gap 9.6 mmol/L (3-11); BUN 21 mg/dL (7-18); Bilirubin, Total 0.4 mg/dL (0.2-1.0); CO2 25.4 mmol/L (21.0-32.0); CREATININE 1.3 mg/dL (0.70-1.30); Calcium 8.7 mg/dL (8.5-10.1); Chloride 103 mmol/L (98-107); Estimated GFR 54.57 (mL/min/1.73m2); Glucose 99 mg/dL (74-106); Potassium 4.1 mmol/L (3.5-5.1); Sodium 138 mmol/L (136-145); Total Protein 7.8 g/dL (6.4-8.2)
== END 2022-04-24 23:59 | disposition home or self-care (01) ==
LOC: INF 00:58
PROVIDERS: PCP Physician Assistant Medical; Visit Provider Internal Medicine Hematology & Oncology
DX: C7A.8 Other malignant neuroendocrine tumors (principal); Z45.2 Encounter for adjustment and management of vascular access device
CPT/HCPCS: 36591; 80053; 85025

== ENCOUNTER 2022-05-23 01:00 | Outpatient (RCR) | payer MEDICARE, SELFPAY ==
[2022-04-25] MEDS: Normal Saline Flush 10 ML SYR IVP (10:42)
[2022-04-25 10:51] LABS: HCT 37.6 % (40.0-50.0); HGB 12.7 g/dL (13.5-17.5); MCH 32.2 pg (27.0-33.0); MCHC 33.8 % (32.0-36.0); MCV 95 fL (80-95); Platelet Count 135 10^3/uL (130-400); RBC 3.95 10^6/uL (4.36-5.78); RDW 13.8 % (11.8-14.1); WBC 2.41 10^3/uL (4.4-10.8)
[2022-04-25 11:10] LABS: ALT 43 U/L (16-63); AST 26 U/L (15-37); Albumin 3.6 g/dL (3.4-5.0); Alkaline Phosphatase 94 U/L (46-116); Anion Gap 8.2 mmol/L (3-11); BUN 15 mg/dL (7-18); Bilirubin, Total 0.4 mg/dL (0.2-1.0); CO2 25.8 mmol/L (21.0-32.0); CREATININE 1.3 mg/dL (0.70-1.30); Calcium 8.4 mg/dL (8.5-10.1); Chloride 104 mmol/L (98-107); Estimated GFR 54.57 (mL/min/1.73m2); Glucose 134 mg/dL (74-106); Potassium 3.8 mmol/L (3.5-5.1); Sodium 138 mmol/L (136-145); Total Protein 7.5 g/dL (6.4-8.2)
[2022-04-25 11:41] LABS: Abs Immature Grans 0.01 10^3/uL (0.0-0.06); Absolute Basophil Count 0.01 10^3/uL (0.0-0.2); Absolute Eosinophil Count 0.12 10^3/uL (0.0-0.7); Absolute Lymphocyte Count 0.42 10^3/uL (1.2-3.4); Absolute Monocyte Count 0.35 10^3/uL (0.1-0.8); Absolute Neutrophil Count 1.51 10^3/uL (1.2-6.7); Basophils % 0.4; Immature Grans % 0.4; Lymphocytes % 17.4; Monocytes % 14.5; Neutrophils % 62.3
[2022-05-23] MEDS: Normal Saline Flush 10 ML SYR IVP (10:38)
[2022-05-23 10:44] LABS: Abs Immature Grans 0.03 10^3/uL (0.0-0.06); Absolute Basophil Count 0.02 10^3/uL (0.0-0.2); Absolute Eosinophil Count 0.08 10^3/uL (0.0-0.7); Absolute Lymphocyte Count 0.47 10^3/uL (1.2-3.4); Absolute Neutrophil Count 2.42 10^3/uL (1.2-6.7); Basophils % 0.6; Eosinophils % 2.3; HCT 39.4 % (40.0-50.0); HGB 13.5 g/dL (13.5-17.5); Immature Grans % 0.9; Lymphocytes % 13.7; MCH 32.6 pg (27.0-33.0); MCHC 34.3 % (32.0-36.0); MCV 95 fL (80-95); MPV 10.2 fL (8.0-11.0); Monocytes % 11.7; Neutrophils % 70.8; Platelet Count 169 10^3/uL (130-400); RBC 4.14 10^6/uL (4.36-5.78); RDW 14.5 % (11.8-14.1); RDW-SD 50.4 fL; WBC 3.42 10^3/uL (4.4-10.8)
[2022-05-23 10:59] LABS: ALT 42 U/L (16-63); AST 31 U/L (15-37); Albumin 3.9 g/dL (3.4-5.0); Alkaline Phosphatase 114 U/L (46-116); Anion Gap 13.1 mmol/L (3-11); BUN 22 mg/dL (7-18); Bilirubin, Total 0.4 mg/dL (0.2-1.0); CO2 21.9 mmol/L (21.0-32.0); CREATININE 1.5 mg/dL (0.70-1.30); Calcium 8.9 mg/dL (8.5-10.1); Chloride 103 mmol/L (98-107); Estimated GFR 46.13 (mL/min/1.73m2); Glucose 137 mg/dL (74-106); Potassium 3.6 mmol/L (3.5-5.1); Sodium 138 mmol/L (136-145)
== END 2022-05-25 23:59 | disposition home or self-care (01) ==
LOC: INF 01:00
PROVIDERS: PCP Physician Assistant Medical; Visit Provider Internal Medicine Hematology & Oncology
DX: C7A.8 Other malignant neuroendocrine tumors (principal); Z45.2 Encounter for adjustment and management of vascular access device
CPT/HCPCS: 36591; 80053; 85027; 85007; 85025

== ENCOUNTER 2022-06-10 10:00 | Outpatient (CLI) | payer MEDICARE, SELFPAY ==
--- NOTE | 2022-06-10 10:00 | RT.EKG_ITS ---
APPROVED REPORT Exam: Resting ECG Reason for Exam: Chest pain Patient Location: O HR:75 bpm ECG Measurements Heart Rate 75 AXIS MD 168 P 68 QRSd 96 QRS 77 QT 398 T 51 QTc 445 Conclusion Sinus rhythm...normal P axis, V-rate 50- 99 Normal Electrocardiogram
== END 2022-06-10 10:01 | disposition home or self-care (01) ==
LOC: RT 10:01
PROVIDERS: PCP Physician Assistant Medical; Visit Provider Internal Medicine Hematology & Oncology
DX: R07.89 Other chest pain (principal)
CPT/HCPCS: 93005; 93010

== ENCOUNTER 2022-06-20 00:57 | Outpatient (RCR) | payer MEDICARE, SELFPAY ==
[2022-06-20] MEDS: Heparin 500 UNITS/5 ML SYRINGE IV (14:33)
[2022-06-20] MEDS: Normal Saline Flush 10 ML SYR IVP (14:33)
[2022-06-20 14:53] LABS: Abs Immature Grans 0.03 10^3/uL (0.0-0.06); Absolute Basophil Count 0.02 10^3/uL (0.0-0.2); Absolute Lymphocyte Count 0.41 10^3/uL (1.2-3.4); Absolute Neutrophil Count 4.69 10^3/uL (1.2-6.7); Basophils % 0.3; Eosinophils % 1.7; HGB 12.3 g/dL (13.5-17.5); Immature Grans % 0.5; MCH 33.6 pg (27.0-33.0); MCHC 34.2 % (32.0-36.0); MCV 98 fL (80-95); MPV 10.1 fL (8.0-11.0); Monocytes % 10.3; Neutrophils % 80.2; Platelet Count 131 10^3/uL (130-400); RBC 3.66 10^6/uL (4.36-5.78); RDW 14.3 % (11.8-14.1); RDW-SD 49.2 fL; WBC 5.85 10^3/uL (4.4-10.8)
[2022-06-20 15:01] LABS: ALT 174 U/L (16-63); AST 121 U/L (15-37); Albumin 3.8 g/dL (3.4-5.0); Alkaline Phosphatase 136 U/L (46-116); Anion Gap 7.6 mmol/L (3-11); BUN 20 mg/dL (7-18); Bilirubin, Total 0.7 mg/dL (0.2-1.0); CO2 28.4 mmol/L (21.0-32.0); CREATININE 1.3 mg/dL (0.70-1.30); Calcium 9.1 mg/dL (8.5-10.1); Chloride 104 mmol/L (98-107); Estimated GFR 54.42 (mL/min/1.73m2); Glucose 111 mg/dL (74-106); Sodium 140 mmol/L (136-145); Total Protein 8.2 g/dL (6.4-8.2)
== END 2022-06-25 23:59 | disposition home or self-care (01) ==
LOC: INF 00:57
PROVIDERS: PCP Physician Assistant Medical; Visit Provider Internal Medicine Hematology & Oncology
DX: C7A.8 Other malignant neuroendocrine tumors (principal); Z45.2 Encounter for adjustment and management of vascular access device
CPT/HCPCS: 36591; 80053; 85025

== ENCOUNTER 2022-06-20 15:59 | Emergency (ER) | payer MEDICARE, SELFPAY ==
[2022-06-20] VITALS (15 sets, daily range): BP systolic 132–146; BP diastolic 75–83; PULSE 73–100; RESP 14–30; O2SAT 93–99
--- NOTE | 2022-06-20 16:00 | RT.EKG_ITS ---
APPROVED REPORT Exam: Resting ECG Reason for Exam: chest pain Patient Location: E HR:101 bpm ECG Measurements Heart Rate 101 AXIS OR 151 P 17 QRSd 97 QRS 64 QT 343 T -19 QTc 447 Conclusion Sinus tachycardia...rate> 99 Multiple ventricular premature complexes...V complexes w/ short R-R intervls Inferior infarct, age indeterminate...Q>35mS, T neg, II III aVF. Sinus. PVCs. T wave inversion in lead III which appears new. No STEMI. I have reviewed and interpreted ECG and agree with software generated interpretation.
--- NOTE | 2022-06-20 16:53 | NUR.NOTE ---
Nursing Note: pt refused to have covid swab done.
[2022-06-20 17:18] LABS: Lipase 125 U/L (73-393); NT-proBNP 48 pg/mL (<300); Troponin I < 50 ng/L (<or=60)
[2022-06-20] MEDS: Omnipaque 350 MG/ML 100 ML BTL IJ (17:19)
[2022-06-20] MEDS: Normal Saline Flush 10 ML SYR IVP (17:20)
--- NOTE | 2022-06-20 17:20 | DI.CT_ITS ---
Exam(s) CT CHEST PE CTA EXAM: CT CHEST PE CTA CLINICAL HISTORY: chest pain and pressure, cancer pt. TECHNIQUE: Imaging Protocol: CT angiography of the chest was performed using pulmonary embolus michelle col. Multi planar reconstructions were performed. CONTRAST MATERIAL: Intravenous: Omnipaque 350 Contrast volume: 76 cc COMPARISON: No exams were available for comparison FINDINGS: CHEST: PULMONARY ARTERIES: There are no intraluminal filling defects to suggest acute pulmonary emboli. LUNGS: No evidence of pulmonary infarction. Mild increased subpleural markings are noted in the ante rior basal segment of the left lower lobe. There are no pleural effusions.. There are no pleural ef fusions. MEDIASTINUM: There is no hilar nor mediastinal adenopathy. Right thyroid lobe is enlarged and appears to contain nodules.This can be further studied with ultrasound. There is an eccentric density on th e left side of the distal esophagus measuring 3.5 x 2.4 by 4 cm craniocaudal. This does not have the appearance of a typical hiatal hernia. May represent neoplasm. There is also an adjacent 1.8 by 1. 2 cm density which is possibly a pathologic lymph node. Also another concerning 3 x 2.5 cm mass in t he gastro esophageal ligament region which is most probably pathologic lymph node. CARDIAC: Heart size is upper normal. There is no pericardial effusion.Caliber of the thoracic aorta is within normal limits. No evidence of aortic dissection. There is no significant shift of the inte rventricular septum. PARTIALLY VISUALIZED UPPERMOST ABDOMEN: Pathologic lymphadenopathy as described above in the epigastr ic/retroperitoneal fat. There also concerning hypodensities in the liver which are probably metastat ic. The largest of these is in the right hepatic lobe and measures approximately 2 x 2 cm. Left adr enal gland unremarkable. Slight thickening of the genu of the right adrenal gland. No splenomegaly. No spleen masses. OSSEOUS: No significant osseous lesions.Compression fracture at superior endplate of L1 noted, not ap pearing acute.. IMPRESSION: 1. No evidence of acute pulmonary emboli. No evidence of pulmonary infarction.No pleural effusions. Mild infiltrate in the anterior basal segment of the left lower lobe. 2. Most concerning finding on this study is a mass in the lateral wall of the lower esophagus measuri ng 3.5 x 2.4 x 4 cm. There are pathologic masses adjacent and below this level consistent with lymph adenopathy and there are findings in the liver suspicious for metastatic lesions. 3. Slight loss of height of superior endplate of L1, probably not acute. There are no obvious lytic appearing osseous lesions in the field of view of this study. Study 1st read by [facility]. My final report with above significant findings called by myself to the emergency room physician Aleisha pardo 06/21/2022 4:40 pm. RADIATION DOSE DELIVERED: 538.78mGy.cm Total DLP DATA REPOSITORY: All CT scans at this facility are submitted to the National Radiology Data Registry (NRDR) Dose Index Registry (DIR) with the [employer] (ACR). RADIATION OPTIMIZATION: All CT scans at this facility use at least one of these dose optimization te chniques: automated exposure control; mA and/or kV adjustment per patient size (includes targeted exa ms where dose is matched to clinical indication); or iterative reconstruction.
--- NOTE | 2022-06-20 17:58 | DI.VRAD_ITS ---
PROCEDURE INFORMATION: Exam: CTA Chest With Contrast Exam date and time: 06/20/2022 5:11 PM Age: 72 years old Clinical indication: Other: Chest pain and pressure, cancer PT TECHNIQUE: Imaging protocol: Computed tomographic angiography of the chest with contrast. 3D rendering (Not supervised by radiologist): MIP and/or 3D reconstructed images were created by the technologist. Radiation optimization: All CT scans at this facility use at least one of these dose optimization techniques: automated exposure control; mA and/or kV adjustment per patient size (includes targeted exams where dose is matched to clinical indication); or iterative reconstruction. Contrast material: OMNIPAQUE 350; Contrast volume: 100 ml; Contrast route: INTRAVENOUS (IV); COMPARISON: No relevant prior studies available. FINDINGS: Pulmonary arteries: No main, lobar or segmental pulmonary arterial embolism. Aorta: No aortic aneurysm. Lungs: There is mild centrilobular and paraseptal emphysema. No mass or consolidation. Pleural spaces: Unremarkable. No pneumothorax. No pleural effusion. Heart: No right heart strain. No cardiomegaly. No pericardial effusion. Lymph nodes: Unremarkable. No enlarged lymph nodes. Diaphragm: There is a small hiatal hernia. Liver: There are numerous low-density masses in the liver. Bones/joints: Unremarkable. No acute fracture. Soft tissues: Unremarkable. IMPRESSION: 1. No pulmonary arterial embolism. 2. Numerous low-density liver masses. 3. Small hiatal hernia. Dictated and Authenticated by: Katie Garcia MD. Ordering:MYRTLE Lyn MD
--- NOTE | 2022-06-20 18:15 | RT.EKG_ITS ---
APPROVED REPORT Exam: Resting ECG Reason for Exam: chest pain Patient Location: E HR:85 bpm ECG Measurements Heart Rate 85 AXIS VT 160 P 28 QRSd 96 QRS 63 QT 379 T 8 QTc 450 Conclusion Pacemaker spikes or artifacts...timing non-diagnostic Sinus rhythm...normal P axis, V-rate 60- 99. Sinus. No STEMI.
[2022-06-20 19:18] LABS: Troponin I < 50 ng/L (<or=60)
[2022-06-20] MEDS: Inhaler, Assist Device 1 EACH MC (20:10)
[2022-06-20] MEDS: Albuterol HFA 8 GM 60 PUFF INH IH (20:10)
--- NOTE | 2022-06-20 23:40 | ED.GENADUL_ITS ---
Discharge Plan Disposition Patient Disposition: HOME Condition: Stable Discharge Details Clinical Impression: Chest pain Primary Care Provider: Nigel Cain V ED Provider: Eboni Gibbons Home Meds and New Rx's Prescriptions: Continued omeprazole 20 mg capsule,delayed release(DR/EC) 1 cap PO DAILY Label Comments: TAKE 2 CAPSULES BY MOUTH DAILY Eliquis 5 mg tablet 1 tab PO DAILY Label Comments: TAKE 1 TABLET BY MOUTH 2 TIMES DAILY oxycodone 5 mg tablet 5 mg PO PRN PRN Label Comments: TAKE ONE TABLET BY MOUTH EVERY 4 HOURS NEEDED FOR SEVERE PAIN FOR 7 DAYS ondansetron HCl 8 mg Tablet 8 mg PO PRN PRN prochlorperazine maleate 10 mg Tablet 10 mg PO PRN PRN temozolomide 5 mg Capsule 5 mg PO DAILY temozolomide 180 mg Capsule 180 mg PO DAILY temozolomide 180 mg Capsule 140 mg PO DAILY Discharge Instructions Instructions: Chest Pain (ED) Additional Instructions: Please follow-up with your oncologist Take the albuterol inhaler if it helps if you have shortness of breath or disc omfort I am unable to exclude this being your heart, I recommend outpatient stress test at the discretion of your doctor We talked about admission, you have declined I recommend returning immediately for reassessment should you have new, worse, or persisting symptoms Referrals: Nigel Cain V [Primary Care Provider] - 1 day Medical Decision Making Patient appears well, his EKG does not show evidence of acute abnormality Negative troponin x2, EKG without acute abnormality x2 Declines a COVID swab Recommend admission, patient is adamantly refusing He will discontinue his oral chemotherapy and follow-up with his oncologist, this was the discussion that he had with his oncologist He has emphysema noted on his CT scan, I will give him an albuterol inhaler with him and try at home as needed for symptoms He is given very low threshold to return should he have new or worsening complaints Is discharged home against her medical recommendation in stable condition, fully alert, oriented, decisional capacity, all discussions had in the past with the patient and his Medical Records Medical records reviewed: Yes I reviewed the patient's medical records. Lab Data Lab results reviewed: Yes I reviewed the patient's lab results. HPI General Date/Time Provider Initiated Documentation: 06/20/22 16:21 . HPI Narrative: This 72-year-old male with history of liver cancer presents with reports of chest pain for the past 2 weeks. Patient denies exacerbating or alleviating factors. He states that it is not worsening but is largely been unchanged in the past 2 weeks. It started approximately 2 days after initiating his oral chemotherapy which is new to him. He relayed this information to his oncologist today who recommended he come to the emergency department to get an EKG. Patient states he has had mild shortness of breath as well. He denies any pleuritic component. He does take his Eliquis as prescribed for a prior pulmonary embolism. He denies any recent flights, surgeries, long drives. He denies any hemoptysis. He denies positional change in his pain. He denies any diaphoresis or nausea. He denies history of hypertension or hyperlipidemia. He denies prior history of coronary artery disease. He has never smoked reportedly. States the pain lasts for approximately 15 to 20 minutes but comes on. He denies any exertional component. He describes it as a pressure sensation. He has not attempted any medication. Related Data Home Medications Medication Instructions Recorded Confirmed apixaban 5 mg tablet (Eliquis) 1 tab PO DAILY 06/20/22 06/20/22 omeprazole 20 mg capsule,delayed 1 cap PO DAILY 06/20/22 06/20/22 release ondansetron HCl 8 mg tablet 8 mg PO PRN PRN 06/20/22 06/20/22 oxycodone 5 mg tablet 5 mg PO PRN PRN 06/20/22 06/20/22 prochlorperazine maleate 10 mg 10 mg PO PRN PRN 06/20/22 06/20/22 tablet temozolomide 180 mg capsule 140 mg PO DAILY 06/20/22 06/20/22 temozolomide 180 mg capsule 180 mg PO DAILY 06/20/22 06/20/22 temozolomide 5 mg capsule 5 mg PO DAILY 06/20/22 06/20/22 Allergies Allergy/AdvReac Type Severity Reaction Status Date / Time No Known Allergies Allergy Verified 06/10/22 09:55 General Stated Complaint: Chest Pain CHERELLE: 2 Review of Systems All systems reviewed & are unremarkable except as noted in HPI and below PFSH All Active Problems (Updated 06/20/22 @ 19:45 by FLACO Luo) Chest pain (Acute) Social History Smoking risk assessment performed?: No Exam Const General: cooperative, comfortable and no acute distress Eyes Sclera: sclerae normal Resp Effort & Inspection: normal respiratory effort Auscultation: clear to auscultation bilaterally Cardio Rate: regular rate Rhythm: regular rhythm Other: No reproducible chest wall pain GI Inspection: normal to inspection Other: Nontender abdominal exam Skin General skin exam: no rashes or lesions noted Neuro General: patient alert and patient oriented x3 Extrem Other: No calf pain or tenderness, distal pulses intact Course Vital Signs Vital signs: Vital Signs Pulse 100 H 06/20/22 16:04 Respiratory Rate 18 06/20/22 16:04 Blood Pressure 146/82 H 06/20/22 16:04 Pulse Oximetry 99 06/20/22 16:04 Temperature Source Temporal Artery Scan 06/20/22 16:04 Pulse 79 06/20/22 20:11 Pulse 84 06/20/22 20:00 Respiratory Rate 27 H 06/20/22 20:11 Respiratory Effort Non-Labored 06/20/22 16:15 Respiratory Depth Normal 06/20/22 16:15 Respiratory Pattern Normal 06/20/22 16:15 Blood Pressure 133/75 06/20/22 20:11 Blood Pressure Mean 89 06/20/22 19:24 Blood Pressure Position Sitting 06/20/22 16:04 Pulse Oximetry 93 06/20/22 20:11 Oxygen Delivery Method Room Air 06/20/22 16:04 Oxygen Flow Rate 0 06/20/22 16:04 Pain Level 3 06/20/22 16:15 Lab/Test Results Lab/Test Results: Laboratory Tests Range/Units 06/20/22 06/20/22 16:10 18:50 Magnesium (1.8-2.4) mg/dL 2.0 Troponin I (<or=60) ng/L < 50 < 50 NT-Pro-B Natriuret Pep (<300) pg/mL 48 Lipase (73-393) U/L 125
== END 2022-06-20 20:12 | disposition home or self-care (01) ==
PROVIDERS: Emergency Provider Physician Assistant; PCP Physician Assistant Medical
DX: R07.9 Chest pain, unspecified (principal); R06.02 Shortness of breath; R07.89 Other chest pain
CPT/HCPCS: 36415; 36591; 71275; 80053; 83690; 87635; 93005; 99285; 83735; 83880; 84484; 85025; 93010; 99284; J3490

== ENCOUNTER 2022-06-29 00:09 | Emergency (ER) | payer MEDICARE, SELFPAY ==
[2022-06-29 00:13] VITALS: BP 122/71; PULSE 107; RESP 18; TEMP 36.8; O2SAT 94
--- NOTE | 2022-06-29 00:15 | DI.CT_ITS ---
Exam(s) CT LUMBAR SPINE W EXAM: CT LUMBAR SPINE W CLINICAL HISTORY: l3 back pain after fall, on elequis, eval fx/hemat. TECHNIQUE: Imaging Protocol: Axial computed tomography images with coronal and sagittal reformatted images were created and reviewed CONTRAST MATERIAL: Noncontrast COMPARISON: CT CT CHEST PE CTA from 06/20/2022 FINDINGS: Bones: There is a mild to moderate compression fracture of the L1 vertebral body which appears to velazquez ve worsened when compared with the previous exam. There is greatest compression centrally. There is some soft tissue density material seen posterior to the vertebral body suspicious for underlying met astatic lesion. No additional fractures are seen. There is a destructive lesion seen in the left side of the T12 vertebral body as well as adjacent pro ximal left T12 rib. There is a destructive lesion on the left side of the L4 vertebral body near the neural foramen. A large lesion is also seen in the right side of the sacrum. There are other scatt ered more subtle areas of lucency which also could represent metastatic lesions. Degenerative disc changes and facet degenerative changes are noted. Laminectomy defects are noted at L4 and L5. Soft Tissues: Innumerable liver metastases. Low-density lesion of the right adrenal gland. Enlarge d celiac axis lymph node. Abnormally enlarged node seen anterior to the L2 vertebral body. IMPRESSION: Moderate compression fracture of L1 appears pathologic. Multiple other metastatic bony lesions are p resent. RADIATION DOSE DELIVERED: 691.25mGy.cm Total DLP DATA REPOSITORY: All CT scans at this facility are submitted to the National Radiology Data Registry (NRDR) Dose Index Registry (DIR) with the [employer] (ACR). RADIATION OPTIMIZATION: All CT scans at this facility use at least one of these dose optimization te chniques: automated exposure control; mA and/or kV adjustment per patient size (includes targeted exa ms where dose is matched to clinical indication); or iterative reconstruction.
--- NOTE | 2022-06-29 00:39 | W.ED.GENAD ---
Discharge Plan Disposition Patient Disposition: HOME Condition: Good Discharge Details Clinical Impression: Lumbago Primary Care Provider: Nigel Cain V ED Provider: Jesus Hewitt Home Meds and New Rx's Prescriptions: New cyclobenzaprine 10 mg tablet 10 mg PO TID Qty: 14 0RF lidocaine [Lidoderm] 5 % adhesive patch,medicated 1 patch Topical Q24H Qty: 15 0RF No Action omeprazole 20 mg capsule,delayed release(DR/EC) 1 cap PO DAILY Label Comments: TAKE 2 CAPSULES BY MOUTH DAILY Eliquis 5 mg tablet 1 tab PO DAILY Label Comments: TAKE 1 TABLET BY MOUTH 2 TIMES DAILY oxycodone 5 mg tablet 5 mg PO PRN PRN Label Comments: TAKE ONE TABLET BY MOUTH EVERY 4 HOURS NEEDED FOR SEVERE PAIN FOR 7 DAYS temozolomide 5 mg Capsule 5 mg PO DAILY temozolomide 180 mg Capsule 180 mg PO DAILY temozolomide 180 mg Capsule 140 mg PO DAILY Discharge Instructions Instructions: Back Pain (ED) Additional Instructions: At this time your signs and symptoms are clinically consistent with back pain likely secondary to your old compression fracture, as well as back muscle spasm. This can cause significant pain and take a fair bit of time to heal. I expect 1 to 2 months for potential resolution. In the meantime do not lift anything greater than 5 pounds for the next 2 weeks. Avoid any significant vigorous physical activity. Perform easy gentle regular activities at home without any significant bending or lifting. You have been given a prescription for Lidoderm patch. If your insurance does not cover this you can get [id number] Lidoderm patches at 4% which are almost just as effective. Please take the Flexeril as directed but do not take it when driving or operating any vehicles or heavy machinery, swimming, taking long baths, or operating firearms. Please use a heating pad as often as possible on your back. Perform daily gentle stretches on your back. If you notice any worsening of your symptoms, or any new symptoms such as vomiting, diarrhea, fever, chills, shortness of breath, chest pain, numbness or tingling in your groin or legs, weakness in your legs, loss of control for your bowels or bladder, or fainting , please return immediately to the emergency department for reevaluation. Please follow up with your primary care provider as soon as possible for reassessment and reevaluation. As always, it was a pleasure participating in your medical care today. Referrals: Adrian Robles [ [facility]FF [facility]YSICIAN] - Nigel Cain V [Primary Care Provider] - Medical Decision Making This is a pleasant 72-year-old male with a past medical history of esophageal and liver cancer currently on chemotherapy, previous blood clots currently on Eliquis, who presents today for back pain. About 6 weeks ago the patient was on his tractor when he had a pothole while rotating turned, this subsequently caused a compression fracture of his lumbar spine, and some rib fractures. He has had a history of spinal surgery in the distant past in the same area. He was treated conservatively, and was given some oxycodone for pain but had not taken those until the last week or so where his pain has continued, and not remitted. He states that the periods of his back is now constant. Worse with movement and flexing. It is only improved by pain medications. Patient denies any saddle anesthesia, numbness or tingling in the groin, change in sensation when wiping. Patient denies any change in sensation during sexual intercourse, difficulty achieving or maintaining an erection or ejaculation, bowel or bladder incontinence, leakage, or retention. Patient denies any weakness in the lower extremities, atypical falls or imbalance. He denies any other complaints at this time. No new falls or trauma. He states that the pain is similar just no better from when he had his initial injury. Physical exam demonstrates no clinical evidence of cauda equina syndrome, but he does have midline spinal tenderness for the lower lumbar spine. Mild paraspinal spasms are noted. Rectal tone is good, DTRs intact. Sensation intact. He does admit to some mild subjective tingling in the lateral thighs but no neurodeficit on exam. Symptoms appear clinically inconsistent for cauda equina syndrome. Concern is for hematoma secondary to his Eliquis use or metastases or new fractures. We will get a repeat CT scan to look for any change in disease process. We will give Lidoderm patch, Solu-Medrol, Tylenol, and Flexeril. Will monitor closely and reassess. 1:[address] scan results continues to demonstrate the compression fracture in L1, he does have been known liver cancer, no other significant finding acutely otherwise. On reassessment patient states that he feels 120% better. He feels much better in general, feels comfortable going home. I feel that we can continue to hold off on any opiate narcotics at this time. We will stick with Lidoderm patch and Flexeril and occasional Tylenol as needed. Patient shows no signs or symptoms indicative of cauda equina syndrome or emergent surgical spinal pathology at this time. With the notable improvement of pain, and the reassuring physical exam findings, I do feel that the patient is safe for discharge with close follow-up with his PCP. Will recommend further discussion of referral to the pain center at [facility] if his symptoms recur. Discussed red flags which to return. I have extensively reviewed the treatment plan and discharge instructions with the patient and their family. I have addressed all patient concerns at this time. The patient and family was made aware of what symptoms to monitor for that would warrant a return to the emergency department. Discussed the plan with the patient and family, they demonstrate verbal understanding and agreement with our assessment and plan at this time. The documentation in this chart was dictated using [employer] dictation software. Please excuse any dictation errors. FINDINGS: Bones/joints: Acute mild compression fracture of L1. Remaining lumbar vertebral body heights are intact. Anatomic lumbarization of S1. Lumbar lordosis is preserved. Multilevel facet arthropathy. No measurable spondylolisthesis. Multilevel degenerative changes with intervertebral disc height loss and osteophyte formation. Liver: Innumerable low-density masses throughout the partially visualized liver. Pathologically enlarged janes-celiac lymph node measuring at least 2.8 cm. Soft tissues: Unremarkable. IMPRESSION: 1. Acute mild compression fracture of L1. 2. Innumerable low-density masses throughout the partially visualized liver. Pathologically enlarged janes-celiac lymph node measuring at least 2.8 cm. Findings highly concerning for metastatic disease of unknown primary. Correlate with history of malignancy. 3. Other chronic findings, as above. Thank you for allowing us to participate in the care of your patient Dictated and Authenticated by: Chau Olivas MD 06/29/2022 1:37 AM Eastern Time ([place] & [place]) HPI General Date/Time Provider Initiated Documentation: 06/29/22 00:27. HPI Narrative: This is a pleasant 72-year-old male with a past medical history of esophageal and liver cancer currently on chemotherapy, previous blood clots currently on Eliquis, who presents today for back pain. About 6 weeks ago the patient was on his tractor when he had a pothole while rotating turned, this subsequently caused a compression fracture of his lumbar spine, and some rib fractures. He has had a history of spinal surgery in the distant past in the same area. He was treated conservatively, and was given some oxycodone for pain but had not taken those until the last week or so where his pain has continued, and not remitted. He states that the periods of his back is now constant. Worse with movement and flexing. It is only improved by pain medications. Patient denies any saddle anesthesia, numbness or tingling in the groin, change in sensation when wiping. Patient denies any change in sensation during sexual intercourse, difficulty achieving or maintaining an erection or ejaculation, bowel or bladder incontinence, leakage, or retention. Patient denies any weakness in the lower extremities, atypical falls or imbalance. He denies any other complaints at this time. No new falls or trauma. He states that the pain is similar just no better from when he had his initial injury. Related Data Home Medications Medication Instructions Recorded Confirmed apixaban 5 mg tablet (Eliquis) 1 tab PO DAILY 06/20/22 06/29/22 omeprazole 20 mg capsule,delayed 1 cap PO DAILY 06/20/22 06/29/22 release oxycodone 5 mg tablet 5 mg PO PRN PRN 06/20/22 06/29/22 temozolomide 180 mg capsule 140 mg PO DAILY 06/20/22 06/29/22 temozolomide 180 mg capsule 180 mg PO DAILY 06/20/22 06/29/22 temozolomide 5 mg capsule 5 mg PO DAILY 06/20/22 06/29/22 cyclobenzaprine 10 mg tablet 10 mg PO TID #14 tabs 06/29/22 lidocaine 5 % topical patch 1 patch topical Q24H #15 ea 06/29/22 (Lidoderm) Previous Rx's Medication Instructions Recorded cyclobenzaprine 10 mg tablet 10 mg PO TID #14 tabs 06/29/22 lidocaine 5 % topical patch 1 patch topical Q24H #15 ea 06/29/22 (Lidoderm) Allergies Allergy/AdvReac Type Severity Reaction Status Date / Time No Known Allergies Allergy Verified 06/29/22 00:29 General Stated Complaint: Nk/Back Pain CHERELLE: 4 Review of Systems All systems reviewed & are unremarkable except as noted in HPI and below PFSH All Active Problems (Updated 06/29/22 @ 01:48 by Jesus Hewitt DO) Chest pain (Acute) Lumbago (Acute) Social History Smoking/Tobacco Use Status: Never Smoking risk assessment performed?: Yes Alcohol Intake: never Drug use: Never Substance use type: does not use Do you feel safe at home: Yes Exam Narrative Exam Narrative: 1.Const: Well-nourished, Well-developed, appearing stated age 2.Eyes: PERRL, no conjunctival injection, and symmetrical lids. 3.ENT: Atraumatic external nose and ears. Moist MM. Neck: Symmetric, trachea midline, No thyromegaly. 4.CVS: +S1/S2, No murmurs or gallops. Peripheral pulses 2+ and equal in all extremities. Brisk capillary refill in all extremities. 5.RESP: Unlabored respiratory effort. Clear to auscultation bilaterally. No wheezes rales or rhonchi 6.GI: Soft, Nontender/Nondistended, No hepatosplenomegaly. No guarding or rebound. 7.MSK: Normocephalic/Atraumatic, Extremities w/o deformity or ttp No cyanosis or clubbing, Normal movement of all extremities . No midline tenderness to palpation over the CTS spine. Mild midline tenderness over the mid lumbar vertebra. Mild paraspinal spasm. Normal ROM in flexion, extension, side bend, and rotation. Patient has +5 out of 5 strength in the lower extremities in dorsiflexion and plantarflexion, knee flexion and extension, hip flexion and extension. Normal strength for dorsiflexion and plantar flexion of the great toe bilaterally. There is +2 over 2 dorsalis pedis pulses bilaterally. There is normal sensation to the skin with light touch at the foot, knee, and hip. Normal saddle sensation. Good sensation over the deep sural nerve area bilaterally. Rectal exam demonstrates good rectal tone and perirectal sensation. Reflexes are +2 over 4 in the patellar reflex bilaterally. +5 out of 5 strength in the medial, ulnar, radial nerve distribution bilaterally in the hands as well as intact light touch sensation to these dermatomes on the hands 8.Skin: Warm, Dry. No rashes or lesions. 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 Sensation grossly intact, no focal neurologic deficits. 10.Psych: (AAO) x3. Appropriate mood and affect Course Vital Signs Vital signs: Vital Signs Temperature 36.8 C 06/29/22 00:13 Pulse 107 H 06/29/22 00:13 Respiratory Rate 18 06/29/22 00:13 Blood Pressure 122/71 06/29/22 00:13 Pulse Oximetry 94 06/29/22 00:13 Temperature 36.8 C 06/29/22 00:13 Temperature Source Skin 06/29/22 00:13 Pulse 107 H 06/29/22 00:13 Respiratory Rate 18 06/29/22 00:13 Respiratory Effort 06/29/22 00:26 Blood Pressure 122/71 06/29/22 00:13 Blood Pressure Position Sitting 06/29/22 00:13 Pulse Oximetry 94 06/29/22 00:13 Oxygen Delivery Method Room Air 06/29/22 00:13 Oxygen Flow Rate 0 06/29/22 00:13 Pain Level 9 06/29/22 00:26 Comment 06/29/22 00:13 Lab/Test Results Lab/Test Results: Laboratory Tests Range/Units 06/29/22 00:30 Sodium Cancelled Potassium Cancelled Chloride Cancelled Carbon Dioxide Cancelled Anion Gap Cancelled BUN Cancelled Creatinine Cancelled Est GFR (CKD-EPI 2020) Cancelled Glucose Cancelled Calcium Cancelled
[2022-06-29] MEDS: methylPREDNISolone SUCC 125 MG VIAL IVP (00:44)
[2022-06-29] MEDS: Cyclobenzaprine 10 MG TAB PO (00:44)
[2022-06-29] MEDS: Acetaminophen 500 MG TAB 1000 MG PO (00:44)
[2022-06-29] MEDS: Lidocaine 5% Patch 1 PATCH TP (00:49)
[2022-06-29] MEDS: Omnipaque 350 MG/ML 100 ML BTL IJ (01:21)
--- NOTE | 2022-06-29 01:38 | DI.VRAD_ITS ---
PROCEDURE INFORMATION: Exam: CT Lumbar Spine With Contrast Exam date and time: 06/29/2022 12:53 AM Age: 72 years old Clinical indication: Other: L3 bck pain after fall, on elequis, eval fx/hemat TECHNIQUE: Imaging protocol: Computed tomography of the lumbar spine with contrast. Contrast material: 350; Contrast volume: 100 ml; Contrast route: INTRAVENOUS (IV); COMPARISON: No relevant prior studies available. FINDINGS: Bones/joints: Acute mild compression fracture of L1. Remaining lumbar vertebral body heights are intact. Anatomic lumbarization of S1. Lumbar lordosis is preserved. Multilevel facet arthropathy. No measurable spondylolisthesis. Multilevel degenerative changes with intervertebral disc height loss and osteophyte formation. Liver: Innumerable low-density masses throughout the partially visualized liver. Pathologically enlarged janes-celiac lymph node measuring at least 2.8 cm. Soft tissues: Unremarkable. IMPRESSION: 1. Acute mild compression fracture of L1. 2. Innumerable low-density masses throughout the partially visualized liver. Pathologically enlarged janes-celiac lymph node measuring at least 2.8 cm. Findings highly concerning for metastatic disease of unknown primary. Correlate with history of malignancy. 3. Other chronic findings, as above. Dictated and Authenticated by: Chau Olivas MD. Ordering:ROSALIA Lee MD
[2022-06-29] MEDS: Cyclobenzaprine 10 MG TAB, 3 TABS/BTL PO (02:05)
[2022-06-29] MEDS: Heparin 500 UNITS/5 ML SYRINGE (02:05)
[2022-06-29 02:06] VITALS: BP 112/68; PULSE 87; RESP 18; O2SAT 94
== END 2022-06-29 02:08 | disposition home or self-care (01) ==
PROVIDERS: Emergency Provider Student in an Organized Health Care Education/Training Program; PCP Physician Assistant Medical
DX: M54.50 Low back pain, unspecified (principal); C22.8 Malignant neoplasm of liver, primary, unspecified as to type; M48.56XA Collapsed vertebra, not elsewhere classified, lumbar region, initial encounter for fracture; C15.9 Malignant neoplasm of esophagus, unspecified; Z79.01 Long term (current) use of anticoagulants; M62.830 Muscle spasm of back
CPT/HCPCS: 80048; 96372; 96374; 99284; 72132; J2930; J3490

== ENCOUNTER 2022-07-01 09:13 | Emergency (ER) | payer MEDICARE, SELFPAY ==
[2022-07-01] VITALS (11 sets, daily range): BP systolic 104–144; BP diastolic 61–77; PULSE 79–115; RESP 14–22; TEMP 36.5; O2SAT 91–96
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
[2022-07-01] MEDS: HYDROmorphone 2 MG/ML SYR 1 MG IVP (10:32)
[2022-07-01] MEDS: diazePAM 5 MG TAB PO (10:33)
[2022-07-01 10:39] LABS: Abs Immature Grans 0.07 10^3/uL (0.0-0.06); Absolute Basophil Count 0.02 10^3/uL (0.0-0.2); Absolute Eosinophil Count 0.02 10^3/uL (0.0-0.7); Absolute Lymphocyte Count 0.32 10^3/uL (1.2-3.4); Absolute Monocyte Count 0.81 10^3/uL (0.1-0.8); Absolute Neutrophil Count 4.96 10^3/uL (1.2-6.7); Basophils % 0.3; Eosinophils % 0.3; HCT 34.3 % (40.0-50.0); HGB 11.5 g/dL (13.5-17.5); Immature Grans % 1.1; Lymphocytes % 5.2; MCH 33.3 pg (27.0-33.0); MCHC 33.5 % (32.0-36.0); MCV 99 fL (80-95); MPV 10.2 fL (8.0-11.0); Monocytes % 13.1; Platelet Count 143 10^3/uL (130-400); RBC 3.45 10^6/uL (4.36-5.78); RDW 14.4 % (11.8-14.1); RDW-SD 51.9 fL
[2022-07-01] MEDS: Normal Saline 1,000 ML 1000 ML IV (10:41)
[2022-07-01] MEDS: Dexamethasone Sod. Phos./Pres-Free 10 MG/ML VIAL IJ (10:46)
[2022-07-01 10:51] LABS: ALT 231 U/L (16-63); AST 183 U/L (15-37); Albumin 3.1 g/dL (3.4-5.0); Alkaline Phosphatase 229 U/L (46-116); Anion Gap 10.4 mmol/L (3-11); BUN 28 mg/dL (7-18); CO2 27.6 mmol/L (21.0-32.0); CREATININE 1.2 mg/dL (0.70-1.30); Calcium 9.3 mg/dL (8.5-10.1); Chloride 100 mmol/L (98-107); Estimated GFR 64.65 (mL/min/1.73m2); Glucose 111 mg/dL (74-106); Potassium 3.5 mmol/L (3.5-5.1); Sodium 138 mmol/L (136-145); Total Protein 7.7 g/dL (6.4-8.2)
[2022-07-01 12:14] LABS: Bilirubin Negative (Negative); Blood Negative (Negative); Clarity Clear (Clear); Glucose Negative (Negative); Ketones Negative (Negative); Leukocyte Esterase Negative (Negative); Nitrite Negative (Negative); Specific Gravity 1.025 (1.005-1.025); pH 5.5 (5-8)
[2022-07-01] MEDS: diazePAM 5 MG TAB 20 MG PO (13:43)
[2022-07-01] MEDS: Heparin 500 UNITS/5 ML SYRINGE (13:44)
== END 2022-07-01 13:57 | disposition home or self-care (01) ==
PROVIDERS: Emergency Provider Physician Assistant; PCP Physician Assistant Medical
DX: M54.50 Low back pain, unspecified (principal); G89.29 Other chronic pain; R53.1 Weakness; C15.9 Malignant neoplasm of esophagus, unspecified; C78.7 Secondary malignant neoplasm of liver and intrahepatic bile duct; C79.51 Secondary malignant neoplasm of bone
CPT/HCPCS: 80053; 96361; 96374; 96375; 99284; 81003; 85025; J1170

== ENCOUNTER 2022-07-04 00:45 | Outpatient (RCR) | payer MEDICARE, SELFPAY ==
[2022-07-04] MEDS: Normal Saline Flush 10 ML SYR IVP (07:39)
[2022-07-04] MEDS: Heparin 500 UNITS/5 ML SYRINGE IV (07:39)
[2022-07-04 07:50] LABS: Abs Immature Grans 0.16 10^3/uL (0.0-0.06); Absolute Basophil Count 0.02 10^3/uL (0.0-0.2); Absolute Eosinophil Count 0.02 10^3/uL (0.0-0.7); Absolute Lymphocyte Count 0.38 10^3/uL (1.2-3.4); Basophils % 0.2; Eosinophils % 0.2; HCT 35.3 % (40.0-50.0); HGB 12.3 g/dL (13.5-17.5); Immature Grans % 1.5; Lymphocytes % 3.5; MCH 33.7 pg (27.0-33.0); MCHC 34.8 % (32.0-36.0); MCV 97 fL (80-95); MPV 9.9 fL (8.0-11.0); Monocytes % 13.9; Neutrophils % 80.7; Platelet Count 148 10^3/uL (130-400); RBC 3.65 10^6/uL (4.36-5.78); RDW 14.2 % (11.8-14.1); RDW-SD 50.7 fL; WBC 10.83 10^3/uL (4.4-10.8)
[2022-07-04 07:51] LABS: Absolute Monocyte Count 1.51 10^3/uL (0.1-0.8); Absolute Neutrophil Count 8.74 10^3/uL (1.2-6.7)
[2022-07-04 08:04] LABS: ALT 175 U/L (16-63); AST 128 U/L (15-37); Alkaline Phosphatase 219 U/L (46-116); Anion Gap 11.5 mmol/L (3-11); BUN 24 mg/dL (7-18); Bilirubin, Total 2.1 mg/dL (0.2-1.0); CO2 26.5 mmol/L (21.0-32.0); CREATININE 1.3 mg/dL (0.70-1.30); Chloride 96 mmol/L (98-107); Estimated GFR 58.73 (mL/min/1.73m2); Glucose 123 mg/dL (74-106); Potassium 3.9 mmol/L (3.5-5.1); Sodium 134 mmol/L (136-145); Total Protein 8.3 g/dL (6.4-8.2)
== END 2022-07-25 23:59 | disposition home or self-care (01) ==
LOC: INF 00:45
PROVIDERS: PCP Physician Assistant Medical; Visit Provider Internal Medicine Hematology & Oncology
DX: C7A.8 Other malignant neuroendocrine tumors (principal); Z45.2 Encounter for adjustment and management of vascular access device
CPT/HCPCS: 36591; 80053; 85025